=== PATIENT | female | born 1940 | race Two or more races ===

== ENCOUNTER → 2016-08-12 | Outpatient (CLI) | payer OTHER ==
--- NOTE | 2016-08-12 10:44 | RADRPT ---
PROCEDURE: Left knee x-ray CLINICAL INDICATION: PAIN TECHNIQUE: AP, lateral, oblique and sunrise views of the left knee were obtained. COMPARISON: None FINDINGS: There is moderate degenerative joint disease of the left knee. There is extensive chondrocalcinosis involving both the medial and lateral compartments. No evidence of acute fractures or dislocations . The bones are osteopenic without focal bony blastic or lytic lesions. No acute fractures or disl ocations. No evidence of left knee joint effusion. IMPRESSION: Moderate degenerative joint disease left knee with extensive chondrocalcinosis. RPTAT:AAJJ Physician Keira Date Time Electronically viewed and signed by Physician Keira on 08/12/2016 10:43 BM/
== END | disposition home or self-care (01) ==
LOC: HKI 10:42
PROVIDERS: ATTEND Orthopaedic Surgery
DX: M17.12 Unilateral primary osteoarthritis, left knee (principal); M25.562 Pain in left knee
CPT/HCPCS: G0463